=== PATIENT | female | born 1955 | race Caucasian/White ===

== ENCOUNTER → 2017-03-30 | Outpatient (CLI) | payer OTHER, BC ==
[~2017-03-30] VITALS: Ht 172.7 cm; Wt 87.1 kg
[~2017-03-30] MED LIST: ACIDOPHILUS1 EAC3 PO; ALDACTONE100 MG PO; ALDACTONE50 MG PO; ALLER-FEX180 MG PO; AMITRIPTYLINE H25 M3 PO; ANAPROX PO; ASPERCREME76.5 GM; BACTRIM 400-801 EACH; BACTRIM PO; BIOTIN5 MG PO; CARBAMAZEPINE200 M2 PO; CLARITIN-D 24 H1 TA1 PO; CO Q-1010 MG PO; COLACE100 MG PO; COMPAZINE10 M2 PO; COMPAZINE10 MG PO; DHEA50 MG PO; ENDOCET 5-3251 EACH PO; ESSENTIA TABLE1 EACH PO; GABAPENTIN800 M1 PO; HYDROCODON-ACE1 EAC7 PO; HYDROCODON-ACE1 EAC8 PO; HYDROCODONE-AP1 EA11 PO; IMITREX100 MG PO; LEVOTHYROXIN0.137 M1 PO; LIDODERM 5%1 PATC1 TOP; LIORESAL 10 MG10 MG PO; LISINOPRIL2.5 MG PO; LUNESTA2 MG PO; LUNESTA3 MG PO; LYRICA 50 MG50 MG PO; Lidoderm 5% Patch TRANSDERM; MAXALT MLT5 MG PO; MECLOFENAMATE PO; METHADONE HCL 110 M1 PO; METOCLOPRAMIDE10 MG PO; MIRAPEX0.5 MG PO; MOVE FREE JOIN1 EACH PO; MS CONTIN15 MG PO; MSM500 MG PO; NAPROSYN500 MG PO; NASACORT10.8 ML; NEURONTIN 300300 M1 PO; NEURONTIN 300M300 M2 PO; NEURONTIN600 MG PO; NEXIUM40 MG PO; NIACIN500 M2 PO; NIACINAMIDE PO; NORCO 10-325 T1 EACH PO; NORCO 5-325 TA1 EACH PO; NORCO 7.5-3251 EACH PO; NORTRIPTYLINE H25 M3 PO; NORTRIPTYLINE H75 M1 PO; NUCYNTA ER100 MG PO; OMEPRAZOLE 20 M20 MG PO; ONDANSETRON HCL8 M2 PO; OXYCODONE-ACET1 EACH PO; OXYCODONE-APAP1 EAC4 PO; PERCOCET 5-3251 EACH PO; PERCOCET PO; PHILLIPS COLON HEALT; PREDNISONE 5 MG5 M1 PO; PROAIR HFA8.5 GM; RESTORIL15 MG PO; RESTORIL30 MG PO; ROBAXIN 750 MG750 M1 PO; SAVELLA50 MG PO; STRESS B WITH1 EAC2 PO; SYMBICORT160 MCG/4. INH; TIROSINT150 MCG PO; TIROSINT88 MCG PO; TRAMADOL 50 MG50 MG PO; VITAMIN D-32000 UNIT PO; VIVELLE1 EAC1; ZOLPIDEM TARTRA10 MG PO; [UNRECOGNIZED DRUG - CODE] TOP
--- NOTE | ~2017-03-30 | HPC ---
[facility] [address] [place] [address] PAIN MANAGEMENT CONSULTATION Name: EMILIA WU Room #: REG AMI Tatum#: [id number] Admission: 03/30/17 Attend Phys: Abimael Hall DO Discharge: Date of : 59 Report #: [id number] THIS REPORT FOR: //name// CC: Silvia Hall DATE OF SERVICE: 03/30/2017 SUBJECTIVE: The patient is a 61-year-old female seen back in April 2015, somewhat lost to follow up. She was treated for symptomatic lumbar radiculopathy. We had suggested a spinal cord stimulator ultimately. The patient was somewhat lost to follow up. She had a cervical epidural injection at last visit (status post cervical decompressive laminectomy historically). Typically, treated for lumbar radicular symptoms with last epidural injection 10/19/2014 at L3-L4 affording good incremental relief of radicular pain. She returns to pain clinic today for prolonged visit, she was seen for approximately 30 minute office visit and then taken to the procedure room. 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 She has started on IVIG replacement. She has had 6 infusions. She states she feels better "overall." She notes that she is taking care of her parents who are getting more debilitated. 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 With increased activity, she states she has pain "everywhere" with pain primarily in the low back and left leg with ongoing pain in the right shoulder and arm. She has become a little more disabled herself having progressed using a walker in the last several weeks. Notes that, she has had a recent exacerbation of pain, low back, left buttock and leg without specific antecedent trauma, though again she does note general overuse with caring for elderly parent. She has chronic lower extremity idiopathic neuropathy, which impedes her balance. The patient has been maximally and well medically managed by Liz Tripp in Dr. Chauncey Burgess's office. Currently, takes gabapentin 600 mg t.i.d., carbamazepine 200 mg t.i.d. She has been using MS Contin 15 mg b.i.d. for about the past 4 months along with hydrocodone 10/325 two tablets 3 times a day, roughly equating to about 90 mEq of morphine. She notes really no significant efficacy with this. She complains of ongoing pain that she rates a 10+ on a 0-10 visual analog scale. Again, notes the pain is exacerbated with any movement. PHYSICAL EXAMINATION: Shows a 61-year-old female, BMI is 29.2 kilograms per meter squared. Blood pressure is nominally elevated at 145/97, pulse 80, respirations are 18. Cranial nerves 2-12 are grossly intact. Pupils equal, react to light and accommodation. Extraocular muscles are intact. There is no nystagmus. Lateral gaze deviation. Rises from chair using armrests, has a markedly antalgic gait, again uses a walker for balance [place] [id number] PAIN MANAGEMENT CONSULTATION Name: EMILIA WU Room #: DORIS Tatum#: [id number] Admission: 03/30/17 Attend Phys: Abimael Hall DO Discharge: Date of : 59 Report #: [id number] weight from the left side. Positive straight leg raise at 30 degrees on the left. Left leg is significantly diminished in strength 2-3/5 versus 3-4/5 for the right. Patellar reflex is diminished on the left. Passive rotation of the right shoulder exacerbates pain. She has significant decreased range of motion abduction of this side. DIAGNOSTIC STUDIES: Reviewed MRI of the cervical spine from 04/04/2015 noting C5-C6 ACDF with decompression of the spinal canal, multilevel cervical spondylosis. Lumbar studies somewhat older dated 01/17/2013 notes progression of L4-L5 broad-based disk bulge causing mild central and moderate bilateral neural foraminal stenosis. L2-L3 notes bilateral HNP, left greater than right. Again, this is a fairly dated study, suspect symptoms have only gotten worse. ASSESSMENT: Symptomatic lumbar radiculopathy, clinical exam and history, chronic pain with neuropathic pain component, requiring high risk complex medication management, history of cervical anterior cervical discectomy and fusion. RECOMMENDATION: 1. Long discussion with the patient today about therapeutic option. My understanding per the patient is that she is requesting that I take over managing her medication. It appears in reconciling her medicine that she had her last prescriptions filled 03/04/2017, MS Contin 15 mg, dispensed #60; hydrocodone 10/325, dispensed #180. I had a long discussion with the patient today about therapeutic options. We have elected to continue her membrane stabilizing agents, unchanged, gabapentin 600 mg t.i.d. and carbamazepine 200 mg t.i.d. She does not require prescription of those medications. If she does require then we can phone those in. We elected to rotate to methadone 5 mg q. 8 hours with Percocet 5/325 t.i.d. for breakthrough pain. This equates to approximately 82.5 mg of morphine equivalence daily roughly equally analgesic to her prior dosing, but as they are relatively novel agents to this patient and as there is an NMDA receptor activity with the methadone, I am hopeful we can get better relief of her neuropathic pain. I have taken the liberty of writing for 30 as medication; we will follow up at that time. Buccal drug swab was accomplished today. We will repeat at next visit. 2. Lumbar epidural injection under fluoroscopy for acute exacerbation of lumbar radicular pain. PROCEDURE: Lumbar epidural injection under fluoroscopy. PROCEDURE: Lumbar epidural steroid injection. PROCEDURE NOTE: After both written and informed consent to include risk of spinal cord damage, increased pain, weakness and dural puncture, the patient was [address] [address] PAIN MANAGEMENT CONSULTATION Name: EMILIA WU Kim Room #: [facility]#: [id number] Admission: 03/30/17 Attend Phys: Abimael Hall DO Discharge: Date of : 59 Report #: [id number] taken to the fluoroscopy suite, placed in the prone position. After sterile prep and drape, a skin wheal with lidocaine was raised. A 22-gauge epidural Tuohy needle was inserted in the midline at L4-L5 with good loss to resistance. Negative aspiration for cerebrospinal fluid or blood was noted. Then 1 mL of Omnipaque under biplanar fluoroscopy showed good spread within the epidural space. This was followed with 80 mg of triamcinolone plus 1 mL of 1.5% preservative-free Xylocaine, 0.5 mL Xylocaine was then injected to flush the needle; it was removed. The patient was monitored for an appropriate period of time and discharged in good and stable condition. <ELECTRONICALLY SIGNED> By: Abimael Hall DO 04/01/17 0816 [id number] [id number] Abimael Hall DO /nt
[2017-03-30 13:15] VITALS: BP 145/97
== END | disposition home or self-care (01) ==
LOC: PAIN 07:04
DX: M54.16 Radiculopathy, lumbar region (principal); G89.29 Other chronic pain; Z98.890 Other specified postprocedural states; Z79.891 Long term (current) use of opiate analgesic; Z88.8 Allergy status to other drugs, medicaments and biological substances; Z79.899 Other long term (current) drug therapy

== ENCOUNTER → 2017-04-16 | Outpatient (CLI) | payer OTHER, BC ==
[~2017-04-16] VITALS: Ht 172.7 cm; Wt 85.7 kg
--- NOTE | ~2017-04-16 | HPC ---
[facility] [place] [address] [place] [address] PAIN MANAGEMENT CONSULTATION Name: JAZMINEMILIA Kim Room #: REG [facility] Rc#: [id number] Admission: 04/16/17 Attend Phys: Abimael Hall DO Discharge: Date of : 59 Report #: [id number] THIS REPORT FOR: //name// CC: Silvia Hall DATE OF SERVICE: 04/17/2017 The patient is a 61-year-old female, last seen in Pain Clinic on 03/30/2017. She has symptomatic lumbar radiculopathy, was given epidural injection at that time with really no efficacy. Returns to Pain Clinic today noting that since she had fallen striking her tailbone, which I believe was in the fall, she had increasing pain in the groin and posterior lateral thigh. She did see Dr. Chauncey Burgess's nurse, Nu, last week. I talked to Nu today. She would like an MRI of the lumbar spine, which I did order today. The patient returns to the Pain Clinic today. She is frustrated noting pain is continuing to be problematic, rates it a "10+" on a VAS. We started methadone 5 mg t.i.d. with Percocet 5/325 for breakthrough pain. Returns to Pain Clinic today. She brought back the Percocet. We have elected to rotate the hydrocodone 10/325 for breakthrough pain and continue methadone t.i.d. I did order Xanax 0.5 two tablets for the MRI, one 30 minutes prior if needed. PHYSICAL EXAMINATION: Shows blood pressure modestly elevated 147/93, pulse 105, respirations 16, BMI is 28.7 kg/m2. Rises from chair using armrest. Antalgic gait favoring the left leg. Slight decreased left hip flexion strength. Positive straight leg raise on the left. ASSESSMENT: Symptomatic lumbar radiculopathy on clinical exam and history. RECOMMENDATION: MRI of the lumbar spine with and without contrast. The patient is status post decompressive laminectomy requiring high-risk complex medication management. Medication changes as noted above. Follow up in 2 weeks. <ELECTRONICALLY SIGNED> By: Abimael Hall DO 04/20/17 0715 1000 27 Abimael Hall DO /nt
[2017-04-16 13:35] VITALS: BP 147/93
== END ==
LOC: PAIN 06:52
DX: M54.16 Radiculopathy, lumbar region (principal)

== ENCOUNTER → 2017-04-30 | Outpatient (CLI) | payer OTHER, BC ==
[~2017-04-30] VITALS: Ht 172.7 cm; Wt 87.1 kg
--- NOTE | ~2017-04-30 | HPC ---
[facility] [place] [address] PAIN MANAGEMENT CONSULTATION Name: EMILIA WU Room #: REG Xiomara Tatum#: [id number] Admission: 04/30/17 Attend Phys: Abimael Hall DO Discharge: Date of : 59 Report #: [id number] THIS REPORT FOR: //name// CC: Silvia Hall The patient is a 61-year-old female typically treated for chronic pain syndrome and lumbar radiculopathy. Epidural injections failed to give great efficacy. At last visit, 04/16/2017, we referred the patient to Neurosurgery. Neurosurgery evaluated the patient and reviewed MRI, which was accomplished on 04/27/2017. No surgical intervention was considered warranted at that time. We reviewed the MRI today, there is a little scoliotic curvature, multilevel degenerative changes, has a new right L5-S1 disk protrusion with mass effect; however, symptoms are subjectively down the left leg in a L4 pattern. L4-L5 does note severe degenerative disk space narrowing with small diffuse posterior disk bulge, prominent epidural fat, ligamentum flavum thickening and high signal change in the left dorsal epidural space near the facet joint thought to represent a synovial cyst. Bilateral neural foraminal narrowing with canal narrowed to 0.6 cm. The patient has a history of bilateral lower extremity idiopathic neuropathy. Does note today ongoing right shoulder pain, which is present with both active and passive range of motion. Tells me that she had had diagnostic studies done at [facility]; however, we do not have those images present. She has been taking methadone 5 mg q. 8 hours with hydrocodone for breakthrough pain with only nominal efficacy. She rates her subjective pain score "10" on a VAS. PHYSICAL EXAMINATION: Shows a 61-year-old female, BMI is 29.2 kilograms per meter squared. Blood pressure 160/91, pulse 87 and respirations are 20. Rises from chair using a walker. Antalgic gait. Tenderness over the left low back, left L4 radicular pain with positive straight leg raise. Slight decreased left hip flexion and lower extremity extension strength. ASSESSMENT: Lumbar radiculopathy, lumbar spondylosis (M47.816) chronic pain syndrome, right shoulder pain requiring complex medication management. RECOMMENDATION: 1. Continue methadone 5 mg t.i.d., hydrocodone 10/325 up to 3 times a day for breakthrough pain and Lidoderm topically. 2. We will request diagnostic studies regarding the right shoulder and consideration for interventional therapy is indicated. 3. Discussion with the patient about therapeutic option. We have elected to proceed with a left L4-L5 facet joint injection with hopes to disrupt a synovial cyst at this level. PROCEDURE NOTE: Left L4/5 facet joint injection under fluoroscopy. [address] [address] PAIN MANAGEMENT CONSULTATION Name: EMILIA WU Room #: REG CL Rc#: [id number] Admission: 04/30/17 Attend Phys: Abimael Hall DO Discharge: Date of : 59 Report #: [id number] PROCEDURE: After written informed consent was obtained, the patient was taken to the fluoroscopy suite and placed in prone position. After sterile prep and drape, skin wheal was raised. A 22-gauge stylet needle was placed to contact the posterior aspect of the left L4/5 facet joint. Negative aspiration; one cc of omnipaque was injected into the joint, highlighting the cyst. Slight pressure was injected and a "release" was felt c/w rupture of the synovial cyst. This was followed with one cc of 1% lidocaine and 40 mg of trimacinalone. The patient was monitored for appropriate period of time. Discharged pain clinic. Still noting ongoing pain in right low back and leg. Told to use ice to the area today. Follow up in 2 weeks for further evaluation. Discharged in good stable condition. <ELECTRONICALLY SIGNED> By: Abimael Hall DO 05/18/17 0938 1654 [id number] Abimael Hall DO /nt
[2017-04-30 13:23] VITALS: BP 160/91
== END | disposition home or self-care (01) ==
LOC: PAIN 07:15
DX: M54.16 Radiculopathy, lumbar region (principal); G89.4 Chronic pain syndrome

== ENCOUNTER → 2017-05-08 | Outpatient (CLI) | payer OTHER, BC ==
[~2017-05-08] VITALS: Ht 172.7 cm; Wt 86.0 kg
--- NOTE | ~2017-05-08 | HPC ---
[facility] [address] [place] [address] PAIN MANAGEMENT CONSULTATION Name: EMILIA WU Room #: REG Xiomara Tatum#: [id number] Admission: 05/08/17 Attend Phys: Abimael Hall DO Discharge: Date of : 59 Report #: [id number] THIS REPORT FOR: //name// CC: Silvia Hall DATE OF SERVICE: 05/08/2017 The patient is an unfortunate 61-year-old female, who had been prior seen in the Pain Clinic many years ago. She returned to our service this past March. She was referred for consideration for spinal cord stimulator. She has had a cervical decompressive laminectomy in the distant past, has had ongoing lumbar radicular pain. She has low IgG. She has had multiple IG infusions. She was being managed by Dr. Burgess's office with MS Contin 15 mg b.i.d. and hydrocodone 10/325. She had been taking up to 2 tablets 3 times a day, equating to roughly 60 mg of morphine daily with "10+" visual analog scale subjective pain. When I tried rotating the patient to methadone, continued her on gabapentin and carbamazepine unchanged (1800 mg and 600 mg respectively). We tried methadone 5 mg q. 8 hours with Percocet 5/325 for breakthrough pain. We did an epidural injection at that time (03/30/2017). The patient returns to the Pain Clinic 04/30/2017. She is having ongoing lumbar radicular pain. Bilateral lower extremity neuropathy. We continued methadone and rotated to hydrocodone for breakthrough pain. We did a left L4-L5 facet joint injection to try and disrupt the synovial cyst at that level with really no change in symptoms. She returns to pain clinic today. She is seen in the company of her who is supportive. We had a prolonged visit today. She notes she was doing reasonably well until she sat on a chair last summer, which collapsed, striking her low back, exacerbating her current symptoms. Pain has become problematic and dramatic. She rates her pain a "10" on a VAS presently. She has an appointment to see her neurologist, Dr. rOtiz next week. She is desirous of possibly trialing spinal cord stimulator to help with neuropathic pain. We may consider both lumbar and cervical trials. I will start with the lumbar trial. [employer] does have an MRI compatible device including generator and paddle lead for the lumbar spine. We would perhaps consider percutaneous lead permanently implanted for cervical radicular symptoms if indicated. I did give the patient printed and video literature regarding the [employer] device. PHYSICAL EXAMINATION: Today is unchanged. A 61-year-old female, BMI is 28.8 kg/m2. Blood pressure is little bit elevated today, 182/78, pulse 84, respirations are 20. Right patellar reflex is absent 2/4 on the left with isometric contraction. Achilles reflexes are symmetric. Straight leg raise is [address] [address] PAIN MANAGEMENT CONSULTATION Name: JAZMINEMILIA Kim Room #: REG AMI Tatum#: [id number] Admission: 05/08/17 Attend Phys: Abimael Hall DO Discharge: Date of : 59 Report #: [id number] negative. Lower extremity strength is symmetric 3/5, but diminishing effort. She uses a walker for balance and to offload some axial back pain. Her notes that she has been suffering with increasing subjective pain past several months. ASSESSMENT: Chronic pain syndrome, axial back pain, lumbar radiculopathy, status post cervical decompressive laminectomy. RECOMMENDATIONS: We will rotate back to MS Contin 15 mg, slightly increase the dose to q. 8 hours. Continue Percocet 10/325, limiting 4 to 5 a day (trying to keep the maximum daily dose under 90-100 jarad-equivalents morphine daily). Consider [employer] spinal cord stimulator trial for lumbar radicular pain. Thanks for allowing me to participate in the patient's care. I will keep you abreast of her progress. <ELECTRONICALLY SIGNED> By: Abimael Hall DO 05/11/17 0747 1551 [id number] Abimael Hall DO /nt
[2017-05-08 13:31] VITALS: BP 182/78
== END ==
LOC: PAIN 07:04
DX: M54.16 Radiculopathy, lumbar region (principal); M96.1 Postlaminectomy syndrome, not elsewhere classified; G89.29 Other chronic pain

== ENCOUNTER → 2017-06-04 | Outpatient (CLI) | payer OTHER, BC ==
[~2017-06-04] VITALS: Ht 172.7 cm; Wt 85.6 kg
[~2017-06-04] MED LIST changes: -GABAPENTIN800 M1 PO
--- NOTE | ~2017-06-04 | HPC ---
[facility] [place] [address] PAIN MANAGEMENT CONSULTATION Name: EMILIA WU [id number] Admission: 06/04/17 Attend Phys: Abimael Hall, DO Discharge: Date of : 59 Report #: [id number] THIS REPORT FOR: //name// CC: Silvia Hall The patient is a 61-year-old female, prior seen 05/08/2017 for ongoing lumbar radicular pain. She is status post prior cervical decompressive laminectomy (postoperative changes at C5-C6 ACDF, but is being treated primarily for lumbar radicular symptoms). Last visit 05/08/2017, she was quite frustrated with ongoing back and right greater than left lumbar radicular pain. We rotated from methadone to MS Contin 15 mg q.8 hours with hydrocodone 10/325 up to 4 a day (note is made that dictation 05/08/2017 was incorrect, I wrote Percocet at that time, it is actually hydrocodone, she is taking for breakthrough pain). She is taking up to 85 mEq of morphine a day, presently with the MS Contin and hydrocodone 10/325. Presents to pain clinic today, noting pain is a 9/10, feeling actually somewhat better than last visit. She is using a walker, which she has for the past 3 months. BMI is 28.7 kilograms per meter squared. Blood pressure 140/84, pulse 102, respirations are 20. Alert and oriented to person, place and time, judged to be a reasonable historian. Does have history of hypertension. Medication list is reconciled. She is on an opiate consent to treat contract, last signed 03/30/2016. Functional assessment tool is quite high, scoring 69/70. She has difficulty rising from the chair, has an antalgic gait, positive straight leg raise on the right with diffuse lower extremity weakness bilaterally. Diffuse tenderness across the low back as well. Diagnostic studies include MRI of the lumbar spine from 04/27/2017. It notes L3-L4 to have severe to moderate degenerative disk space narrowing canal of 0.8 cm. L4-L5 notes severe degenerative disk space narrowing, small disk noted in this area with prominent epidural fat, left-sided synovial cyst, canal narrowed to 0.6 cm AP, bilateral moderate neural foraminal narrowing. L5-S1 notes slight diffuse posterior disk bulge as well. Moderate disk bulge, right lateral recess with significant mass effect on the right lateral L5 right neural foramen. Does have slight scoliotic curvature. ASSESSMENT: Symptomatic lumbar radiculopathy requiring complex medication management, history of cervical decompressive laminectomy. We reviewed the fact that opiate medications are being used to provide analgesia adequate to support activities of daily living, not attempting to achieve a specific pain score on the 0-10 Visual Analog Scale. The current opiate medications are providing sufficient analgesia to allow the patient to participate in activities of daily living. The patient is not exhibiting any aberrant behavior suggestive of drug diversion. The patient is not having any adverse reactions to medications. The patient is not suffering from daytime somnolence or mental acuity changes. The patient is managing opiate-induced constipation with appropriate [id number] agents and dietary [address] [address] PAIN MANAGEMENT CONSULTATION Name: EMILIA WU Room #: REG AMI Tatum#: [id number] Admission: 06/04/17 Attend Phys: Abimael Hall DO Discharge: Date of : 59 Report #: [id number] considerations. The patient was counseled on concern for caution with operating a motor vehicle while using opiate medications. A physical exam was performed and the patient's functional status was evaluated. All patients with back pain were advised against the bed rest greater than 4 days and were advised to return to normal activities. Pain score assessment was noted and the treatment plan was reviewed with the patient. All current medications, both prescribed and OTC were reviewed and reconciled on the electronic medical record. Tobacco screening was accomplished and smoking cessation was advised when indicated. BMI was noted and diet/exercise modification was recommended for all patients following outside normal parameters. I reviewed with the patient today their responsibilities to safeguard prescription medications, reviewed their responsibility to utilize medications only as prescribed by the physician. They are to seek and receive pain medications only from 1 physician group ( [facility]). They are to use 1 pharmacy and keep the clinic informed if they change pharmacies. Their responsibilities include making followup visits in a timely fashion and to avoid abrupt discontinuation of medication usage. Their responsibilities further include bringing their medications (bottles from the pharmacy with residual pills) to the visit for possible confirmation of pill counts and the patient understands it is their responsibility to submit to random drug screens to ensure both that the medications prescribed are present, and that no other controlled substances are present. All prescriptions provided today were generated electronically. RECOMMENDATION: 1. Continue MS Contin 15 mg q.8 hours and hydrocodone 10/325 up to 4 a day. 2. Follow up with Dr. Chauncey Burgess's office next week. If not a surgical candidate, we will likely move forward with spinal cord stimulator trial for ongoing back and radicular pain. Hopefully, there is a simple surgical correction, which will help with the patient's subjective back and lumbar radicular pain. We will see her in 1 month for reevaluation. <ELECTRONICALLY SIGNED> By: Abimael Hall DO 06/08/17 0714 1605 1720 Abimael Hall DO /nt
[2017-06-04 14:08] VITALS: BP 148/84
== END ==
LOC: PAIN 05-21 11:18
DX: M54.16 Radiculopathy, lumbar region (principal); Z79.899 Other long term (current) drug therapy

== ENCOUNTER → 2017-07-02 | Outpatient (CLI) | payer OTHER, BC ==
[~2017-07-02] VITALS: Ht 170.2 cm; Wt 84.4 kg
[~2017-07-02] MED LIST changes: +GABAPENTIN800 M1 PO
--- NOTE | ~2017-07-02 | HPC ---
[address] [address] PAIN MANAGEMENT CONSULTATION Name: EMILIA WU Room #: REG AMI Tatum#: [id number] Admission: 07/02/17 Attend Phys: Abimael Hall DO Discharge: Date of : 59 Report #: [id number] THIS REPORT FOR: //name// CC: Silvia Hall DATE OF SERVICE: 07/02/2017 The patient is a very pleasant 61-year-old female. Last seen in the Pain Clinic on 06/04/2017. She had prior been treated back in 2014 for ongoing cervical radicular symptoms, lost to followup. She returns to our care March of this year. She is status post cervical decompressive laminectomy (C5-C6 ACDF) was treated for ongoing lumbar radicular symptoms. She had lumbar epidural injection 03/30/2017, lumbar facets on 04/30/2017. Ultimately with ongoing radicular pain interfering with function, patient requiring a walker to ambulate, we referred the patient to Neurosurgery for consideration for further intervention. She has seen Dr. Burgess's nurse practitioner. CT myelogram has been ordered for the . She has a followup appointment subsequent to that. Presently, we have continued the patient on moderate high-dose opiate, MS Contin 15 mg q. 8 hours and hydrocodone 10/325 up to 5 a day (95 mEq of morphine per day). Returns to Pain Clinic today noting medications are providing some analgesia, though pain continues to be problematic. She has 2 primary pains, axial back pain with lumbar radicular component as well as right shoulder pain exacerbated with any weightbearing. This complicates walking with a walker. Physical examination does show tenderness with any rotation of that right shoulder greater than about 20 degrees. Abduction is limited. Axial back pain is unchanged. Lumbar radicular component remains. Other physical exam notes BMI of 29.1 kg/m2. Blood pressure 161/94, pulse of 108, respirations 16. Subjective pain score is 9 on a VAS. Opiate consent to treat contract was signed on 03/30/2016. Functional assessment tool is quite high. We reviewed the fact that opiate medications are being used to provide analgesia adequate to support activities of daily living, not attempting to achieve a specific pain score on the 0-10 Visual Analog Scale. The current opiate medications are providing sufficient analgesia to allow the patient to participate in activities of daily living. The patient is not exhibiting any aberrant behavior suggestive of drug diversion. The patient is not having any adverse reactions to medications. The patient is not suffering from daytime somnolence or mental acuity changes. The patient is managing opiate-induced constipation with appropriate fkwl-wyn-rxkyjim agents and dietary considerations. The patient was counseled on concern for caution with operating a motor vehicle while using opiate medications. [address] [address] PAIN MANAGEMENT CONSULTATION Name: EMILIA WU Room #: REG CLXiomara Tatum#: [id number] Admission: 07/02/17 Attend Phys: Abimael Hall DO Discharge: Date of : 59 Report #: [id number] A physical exam was performed and the patient's functional status was evaluated. All patients with back pain were advised against the bed rest greater than 4 days and were advised to return to normal activities. Pain score assessment was noted and the treatment plan was reviewed with the patient. All current medications, both prescribed and OTC were reviewed and reconciled on the electronic medical record. Tobacco screening was accomplished and smoking cessation was advised when indicated. BMI was noted and diet/exercise modification was recommended for all patients following outside normal parameters. I reviewed with the patient today their responsibilities to safeguard prescription medications, reviewed their responsibility to utilize medications only as prescribed by the physician. They are to seek and receive pain medications only from 1 physician group ( [facility]). They are to use 1 pharmacy and keep the clinic informed if they change pharmacies. Their responsibilities include making followup visits in a timely fashion and to avoid abrupt discontinuation of medication usage. Their responsibilities further include bringing their medications (bottles from the pharmacy with residual pills) to the visit for possible confirmation of pill counts and the patient understands it is their responsibility to submit to random drug screens to ensure both that the medications prescribed are present, and that no other controlled substances are present. All prescriptions provided today were generated electronically. ASSESSMENT: 1. Lumbar radiculopathy secondary to spinal stenosis requiring complex medication management. Recommendation: We will renew for 1 more month MS Contin 15 mg q. 8 hours and hydrocodone 10/325 up to 5 a day. I pointed out to the patient this is a supratherapeutic load of opiate and we will aggressively want to wean opiate after she sees Dr. Burgess. We will either have her move forward with surgical decompression or consideration for spinal cord stimulator trial, specific means to decrease the pain generator. 2. Acute exacerbation of right shoulder pain secondary to OA. Recommendation: Right shoulder injection under fluoroscopy today. PROCEDURE: Right shoulder injection under fluoroscopy. PROCEDURE NOTE: After written informed consent was obtained, the patient was taken to the fluoroscopy suite and placed in the supine position. Skin overlying the right shoulder was cleansed with ChloraPrep. Skin wheal with Xylocaine was raised. A 22-gauge stylet needle was placed to contact the superior aspect of the glenohumeral joint. Negative aspiration was accomplished. 1 mL of Omnipaque was injected showed spread in the joints, followed with 40 mg triamcinolone plus 2 mL of 0.5% preservative-free bupivacaine. Needle was removed. The area was cleansed and Band-Aids applied. The patient monitored for an appropriate period of time, told to monitor the [facility] [address] [place] [address] PAIN MANAGEMENT CONSULTATION Name: EMILIA WU [facility] #[facility] [id number] Admission: 07/02/17 Attend Phys: Abimael Hall DO Discharge: Date of : 59 Report #: [id number] area for any signs of infection including systemic fever or chills. Report to the ER if same. Follow up in 4 weeks for reevaluation after consultation with Neurosurgery. <ELECTRONICALLY SIGNED> By: Abimael Hall DO 07/04/17 [id number] Abimael Hall DO /nt
[2017-07-02 13:25] VITALS: BP 161/94
== END | disposition home or self-care (01) ==
LOC: PAIN 06:44
DX: M25.511 Pain in right shoulder (principal); M54.16 Radiculopathy, lumbar region; Z79.899 Other long term (current) drug therapy; Z98.890 Other specified postprocedural states

== ENCOUNTER → 2017-08-13 | Outpatient (CLI) | payer OTHER, BC ==
[~2017-08-13] VITALS: Ht 170.2 cm; Wt 83.7 kg
--- NOTE | ~2017-08-13 | HPC ---
[facility] [place] [address] PAIN MANAGEMENT CONSULTATION Name: JAZMINEMILIA Kim Room #: REG [facility] Rc#: [id number] Admission: 08/13/17 Attend Phys: Abimael Hall DO Discharge: Date of : 59 Report #: [id number] THIS REPORT FOR: //name// CC: Dr. Reyna Hall DATE OF SERVICE: 08/13/2017 The patient is a 61-year-old female who has been treated for chronic pain concerns, fibromyalgia off and on since 2010. She was lost to follow up after 04/2015. Returned to the clinic March of this year. Had a marked antalgic gait. Ongoing pain low back, left buttock and leg. Ultimately did an epidural injection at that time with only nominal improvement of symptoms. Lumbar facet injections in April. I talked about a spinal cord stimulator, but ultimately elected to move forward with lumbar decompressive laminectomy. The patient has jriufpdi-gm-xtgkqj degenerative disk space narrowing at L3-L4. Canal is narrowed to 0.8 cm. L4-L5 notes severe degenerative disk space narrowing, a small posterior disk bulge, prominent dorsal epidural fat ligamentum flavum thickening. Appears to have left synovial cyst at this level. Canal is narrowed to 0.6 cm. L5-S1 notes new moderate sized disk bulge, right lateral area with significant mass effect on the right lateral recess. This MRI was accomplished 04/27/2017. Last visit 08/06/2017, patient has been using a walker to get around with ongoing debility. She has had significant exacerbation of right shoulder pain. I did do a right shoulder injection on 07/02/2017 with incremental improvement. Pain had begun to recur. The patient wished to have shoulder injection again and I have agreed to do this one more time to help with acute pain concerns right shoulder. She does have surgery scheduled for lumbar decompressive laminectomy 09/11/2017. She does have narcotic medication sufficient to get to that appointment (MS Contin 15 mg q. 8 hours and hydrocodone 10/325 up to 5 a day). We talked about therapeutic options going forward. She is loathe to continue MS Contin. She feels it is not effective. She would like to continue hydrocodone. I told her we can certainly resume hydrocodone after the surgery. I did write for a weaning dose of MS Contin after surgery, prescription to be released in 3 weeks for MS Contin, dispensed 42 tablets, one tablet t.i.d. prior to surgery and then post-surgery 1 tablet b.i.d. for a week, 1 tablet at bedtime for a week and then off. We will continue hydrocodone 10/325. In fact, I have given her prescriptions for this. She does have a prescription "in waiting" for the next 4 weeks and I gave her for the next 7 weeks in total. I did give her today a 7-week release prescription for hydrocodone 10/325, limit 150 tablets, 1 tablet 5 a day for postoperative pain control. [address] [address] PAIN MANAGEMENT CONSULTATION Name: EMILIA WU Room #: REG AMI Tatum#: [id number] Admission: 08/13/17 Attend Phys: Abimael Hall, DO Discharge: Date of : 59 Report #: [id number] I did tell the patient that she should contact Dr. Orellana, her primary care physician for a referral to a new pain clinic. I am leaving [facility] and my practice partners is having difficult time accommodating all of my patient load. Hopefully, Dr. Orellana can find another pain treatment physician to assist with management of the patient's symptoms ASSESSMENT: 1. Symptomatic lumbar radiculopathy secondary to spinal stenosis, ongoing axial back pain, complex medication management. Recommendations: Medication as noted above. 2. Acute exacerbation of right shoulder degenerative joint disease. Recommendation: Right shoulder injection under fluoroscopy. PROCEDURE: Right shoulder injection under fluoroscopy. PROCEDURE NOTE: After written informed consent was obtained, the patient was taken to the fluoroscopy suite and placed in supine position. After sterile prep and drape, skin wheal was raised. A 22-gauge stylet needle was placed to contact the medial aspect of the glenohumeral joint. Negative aspiration was accomplished. 1 mL of Omnipaque was injected, which showed spread of the joints followed with 40 mg triamcinolone plus 2 mL of 0.5% preservative-free bupivacaine. Fluoroscopy time was under 15 seconds. The patient was monitored for an appropriate period of time, discharged in good and stable condition, told to watch for any signs of infection. Return to the ER if she has any systemic concerns i.e., fever or chills. Discharged in good and stable condition. <ELECTRONICALLY SIGNED> By: Abimael Hall DO 08/14/17 [id number] [id number] Abimael Hall DO /nt
[2017-08-13 12:55] VITALS: BP 152/74
== END | disposition home or self-care (01) ==
LOC: PAIN 07:10
DX: M19.011 Primary osteoarthritis, right shoulder (principal); G89.29 Other chronic pain; M54.16 Radiculopathy, lumbar region; M48.061 Spinal stenosis, lumbar region without neurogenic claudication; M79.7 Fibromyalgia; Z79.891 Long term (current) use of opiate analgesic; Z98.890 Other specified postprocedural states; Z88.8 Allergy status to other drugs, medicaments and biological substances; Z79.899 Other long term (current) drug therapy

== ENCOUNTER → 2020-05-22 | Outpatient (CLI) | payer OTHER, BC | LOC: SJCVCIMAG 11:13 | PROVIDERS: ATTEND Nuclear Medicine Nuclear Cardiology | DX: I73.9 Peripheral vascular disease, unspecified (principal); R23.8 Other skin changes; I10 Essential (primary) hypertension; R55 Syncope and collapse; I99.8 Other disorder of circulatory system; K21.9 Gastro-esophageal reflux disease without esophagitis; Z98.890 Other specified postprocedural states; Z82.49 Family history of ischemic heart disease and other diseases of the circulatory system; Z79.899 Other long term (current) drug therapy ==

== ENCOUNTER → 2020-05-24 | Outpatient (CLI) | payer OTHER, BC ==
[2020-05-24 13:19] LABS: CREATININE 0.7 mg/dL (0.6-1.0)
== END ==
LOC: CAT 11:44
PROVIDERS: ATTEND Nuclear Medicine Nuclear Cardiology
DX: Z01.812 Encounter for preprocedural laboratory examination (principal); K76.89 Other specified diseases of liver; M51.36 Other intervertebral disc degeneration, lumbar region; I70.0 Atherosclerosis of aorta

== ENCOUNTER → 2020-06-12 | Outpatient (CLI) | payer OTHER, BC | LOC: SJCVCIMAG 09:10 | PROVIDERS: ATTEND Nuclear Medicine Nuclear Cardiology | DX: I65.23 Occlusion and stenosis of bilateral carotid arteries (principal); R55 Syncope and collapse; R06.00 Dyspnea, unspecified; I73.00 Raynaud's syndrome without gangrene; E78.00 Pure hypercholesterolemia, unspecified; K21.9 Gastro-esophageal reflux disease without esophagitis; I10 Essential (primary) hypertension; I99.8 Other disorder of circulatory system; I73.9 Peripheral vascular disease, unspecified; Z90.710 Acquired absence of both cervix and uterus; Z88.8 Allergy status to other drugs, medicaments and biological substances; Z79.899 Other long term (current) drug therapy; Z82.49 Family history of ischemic heart disease and other diseases of the circulatory system ==

== ENCOUNTER → 2020-06-20 | Outpatient (CLI) | payer OTHER, BC | LOC: SJCVCIMAG 06-19 15:28 | PROVIDERS: ATTEND Internal Medicine Cardiovascular Disease | DX: I73.00 Raynaud's syndrome without gangrene (principal); R06.00 Dyspnea, unspecified ==